=== PATIENT | female | born 1990 | race Caucasian/White ===

== ENCOUNTER 2019-06-08 09:58 | Day surgery (SDC) | payer BC ==
[2019-06-06 12:41] LABS: Mean Corpuscular HGB CONC 33.8 g/dL (32.0-36.0); Mean Corpuscular Hemoglobin 32.5 pg (27.0-31.0); Mean Corpuscular Volume 96.2 fL (78.0-98.0); Mean Platelet Volume 8.1 fL (7.4-10.4); Platelet Count 318 thou/uL (130-400); Red Blood Cell (RBC) Count 3.99 mill/uL (4.20-5.40); White Blood Cell (WBC) Count 3.5 thou/uL (4.8-10.8)
[2019-06-08] MEDS ORDERED: Famotidine/PF 20 mg/2ml Vial ONE ×2 (10:20→11:21)
[2019-06-08] MEDS ORDERED: Gabapentin 300 MG CAP ONE (10:21)
[2019-06-08] MEDS ORDERED: CeleCOXIB 100 MG CAP ONE (10:21)
[2019-06-08] MEDS ORDERED: Midazolam HCl 2 mg/2 ml Vial ONE ×2 (11:02→11:22)
[2019-06-08] MEDS ORDERED: Fentanyl 100 MCG/2 ML VIAL ONE ×2 (11:02→13:45)
[2019-06-08] MEDS ORDERED: Silver Nitrate Application 1 EACH ONE (13:06)
[2019-06-08] MEDS ORDERED: Ondansetron PF 4 MG/2 ML Vial ONE (13:11)
[2019-06-08] MEDS ORDERED: PROPOFOL 200 MG/20 ML VIAL ONE (13:11)
[2019-06-08] MEDS ORDERED: Dexamethasone 20 MG/5 ML VIAL ONE (13:11)
[2019-06-08] MEDS ORDERED: diphenhydrAMINE 50 MG/ML VIAL ONE (13:11)
[2019-06-08] MEDS ORDERED: Meperidine HCl/PF 25 MG/ML VIAL ONE (13:48)
[2019-06-08] MEDS ORDERED: HYDROcodone/Acetaminophen 5/325 mg Tablet ONE (14:41)
--- NOTE | 2019-06-08 20:00 | OP ---
DATE OF PROCEDURE: 06/08/2019 PREOPERATIVE DIAGNOSIS: Large exophytic cervical polyp suspected. POSTOPERATIVE DIAGNOSIS: Large exophytic cervical polyp suspected. PROCEDURES PERFORMED: Cervical dilation, hysteroscopy, polypectomy, and endometrial curettage. PHOTOVOLTAIC PANEL INSTALLER: None. ESTIMATED BLOOD LOSS: Less than 75 mL. OPERATIVE FINDINGS: 1. Vaginal findings: Large exophytic cervical polyp, approximately 4 to 5 cm x 4 cm, removed and sent for pathologic review. 2. Polyp stalk noted in the internal cervical canal anteriorly. 3. Small polypoid-appearing tissue within the endometrial cavity. 4. Normal-appearing uterine cavity otherwise with normal-appearing tubal ostia. 5. Surgical sites hemostatic. DESCRIPTION OF PROCEDURE: The patient was taken back to the OR with IV fluids running. After anesthesia was obtained, the patient was placed in dorsal lithotomy position. The vagina was prepped and draped in normal fashion for hysteroscopy. The bladder was drained approximately 400 mL of urine at the start of the case. An operative speculum was placed into the vagina and immediately a large exophytic mass was noted extending from the cervix. The mass was grasped with a ring forceps and manipulated with a thick stalk noted within the cervix anteriorly. A loop of Vicryl suture was passed over the mass and cinched down at the stalk base. Next, the mass was cut with curved Edmond scissors at the base and sent intact for pathologic review. Minimal bleeding was noted at the polyp stalk. The cervix was then serially dilated to approximately 16-Irish. The Hysteroscope was placed through the endocervical canal, which was carefully inspected with no bleeding noted. The hysteroscope was then passed through the endometrial cavity, which was distended with normal saline. Small polypoid-appearing fragments were noted at the posterior aspect of the uterus. Tubal ostia were identified bilaterally. The hysteroscope was removed and gentle curettage was performed, and the polypoid-appearing tissue was removed from the endometrium and sent in a separate canister for pathologic review. The hysteroscope was then replaced through the cervix and into the intrauterine cavity with normal findings noted. The hysteroscope was removed. A small amount of topical silver nitrate was applied to the site of the cervix polypectomy. The Vicryl suture was not left in situ and was removed. The cervix was inspected after the tenaculum was removed from the anterior lip. No bleeding was noted. All instruments were removed. The counts were correct. The patient was then cleaned, dried, taken out of lithotomy position, and transferred to the recovery room in good condition. Job ID: [id number]
== END 2019-06-08 16:10 | disposition home or self-care (01) ==
LOC: SDC 09:58
PROVIDERS: ATTEND Obstetrics & Gynecology
PROC: 0UBC8ZZ Excision of Cervix, Via Natural or Artificial Opening Endoscopic (ICD-10-PCS; principal; 2019-06-08)
PROC: 0UDB8ZZ Extraction of Endometrium, Via Natural or Artificial Opening Endoscopic (ICD-10-PCS; principal; 2019-06-08)
DX: N84.1 Polyp of cervix uteri (principal); F41.8 Other specified anxiety disorders; F32.9 Major depressive disorder, single episode, unspecified; Z79.899 Other long term (current) drug therapy
CPT/HCPCS: 36415; 85027; 86850; 86900; 86901; 88305; J0690; J2175; J2250; J3010; S0028